=== PATIENT | male | born 1960 | race Caucasian/White ===

== ENCOUNTER → 2021-06-02 | Outpatient (CLI) | payer OTHER ==
--- NOTE | 2021-06-02 11:33 | KCIC ---
EXAM: Lumbar spine MRI without contrast. HISTORY: Pain. Leg weakness. TECHNIQUE: Multiplanar, multisequence magnetic resonance imaging of the lumbar spine was performed wi thout contrast. COMPARISON: CT dated 04/22/2021. FINDINGS: There is mild S-shaped lumbar scoliosis. There is no significant listhesis. There is multil evel endplate remodeling and spurring. There are multiple endplate Schmorl's nodes. There is disc alina iccation at multiple levels. There are few benign bone islands and osseous hemangiomas. There is no s uspicious osseous lesion. There is no acute or subacute fracture. There are postoperative changes at L3-L4, described in detail below. The conus terminates at L1. At L1-L2, there is no stenosis. At L2-L3, there is a disc bulge and endplate remodeling. There is mild bilateral facet arthropathy. T here is prominent dorsal epidural fat. There is mild bilateral foraminal stenosis. There is minimal c entral canal stenosis. At L3-L4, there are partial laminectomy changes. There is postoperative susceptibility effect and sca rring within the interspinous space and overlying subcutaneous fat at this level. There is a large le ft paracentral to foraminal disc protrusion and inferior extrusion superimposed on a disc bulge and l eft lateral predominant endplate remodeling. The extruded disc material extends 9 mm inferior to the disc space. There is moderate right and mild left facet arthropathy. There is mild right and moderate left foraminal stenosis with abutment of the exiting left L3 nerve root. There is severe central can al stenosis with rightward deviation of the traversing nerve roots and complete effacement of the lef t lateral recess. At L4-L5, there is a disc bulge and endplate remodeling. There is severe right and moderate left face t arthropathy. There is prominent dorsal epidural fat. There is mild bilateral foraminal stenosis. Th ere is moderate central canal stenosis. At L5-S1, there is a disc bulge and endplate remodeling. There is severe right and moderate left face t arthropathy. There is mild bilateral foraminal stenosis. IMPRESSION: 1. L3-L4: Large left paracentral to left foraminal disc protrusion with 9 mm inferior extrusion super imposed on a disc bulge, endplate remodeling and facet arthropathy. This results in mild right and mo derate left foraminal stenosis with abutment the exiting left L3 nerve root and severe central canal stenosis with rightward deviation of the traversing nerve roots and complete effacement of the left l ateral recess. There are partial laminectomy changes at this level, with associated suspected scarrin g within the laminectomy decompression space and overlying subcutaneous fat. There is edema within th e posterior paraspinal musculature at this level and inferior to this level which may be due to dener vation. 2. Degenerative change at the remainder of the lumbar levels, described in detail above. This results in mild bilateral foraminal and minimal central canal stenosis at L2-L3, mild bilateral foraminal an d moderate central canal stenosis at L4-L5, and mild bilateral foraminal stenosis at L5-S1. Electronically signed by: Cindy Weems MD (06/02/2021 11:31 AM) [facility]
== END ==
LOC: KCIC MRI 09:21
PROVIDERS: ATTEND Physician Assistant
DX: M51.36 Other intervertebral disc degeneration, lumbar region (principal); M47.817 Spondylosis without myelopathy or radiculopathy, lumbosacral region; M51.27 Other intervertebral disc displacement, lumbosacral region; M41.86 Other forms of scoliosis, lumbar region; M51.46 Schmorl's nodes, lumbar region; M48.07 Spinal stenosis, lumbosacral region
CPT/HCPCS: 72148

== ENCOUNTER → 2021-06-29 | Outpatient (CLI) | payer OTHER ==
[~2021-06-29] MED LIST: ASPI-630 PO; CARV3.1210 PO; INSU100V13 SQ; LIPITOR80 MG PO; LISI10TA16 PO; MELO15TA23 PO; PANT40TA77 PO; PIOG30TA62 PO; TAMS0.4C97 PO; VENL150C PO
[2021-06-29 14:50] LABS: BASO # 0.1 x10^3/uL (0.0-0.2); BASO % 1 % (0-3); EOS # 0.2 x10^3/uL (0.0-0.7); EOS % 3 % (0-3); HEMATOCRIT 38.8 % (39.0-53.0); HEMOGLOBIN 13.4 g/dL (13.0-17.5); LYMPH # 2.5 x10^3/uL (1.0-4.8); LYMPH % 34 % (24-48); MEAN CORPUSCULAR HEMOGLOBIN 27 pg (25-35); MEAN CORPUSCULAR HGB CONC 35 g/dL (31-37); MEAN CORPUSCULAR VOLUME 79 fL (79-100); MONO # 0.4 x10^3/uL (0.0-1.1); MONO % 6 % (0-9); NEUT # 4.1 x10^3/uL (1.8-7.7); NEUT % 56 % (31-73); PLATELET COUNT 305 x10^3/uL (140-400); RED BLOOD COUNT 4.92 x10^6/uL (4.30-5.70); RED CELL DISTRIBUTION WIDTH 14.2 % (11.5-14.5); WHITE BLOOD COUNT 7.3 x10^3/uL (4.0-11.0)
[2021-06-29 15:09] LABS: ALBUMIN 3.5 g/dL (3.4-5.0); ALBUMIN/GLOBULIN RATIO 1.2 (1.0-1.7); CALCIUM 8.4 mg/dL (8.5-10.1); CREATININE 0.9 mg/dL (0.7-1.3); GFR 86.1; POTASSIUM 3.4 mmol/L (3.5-5.1); TOTAL BILIRUBIN 0.3 mg/dL (0.2-1.0); TOTAL PROTEIN 6.5 g/dL (6.4-8.2)
[2021-06-29 15:14] LABS: PROTHROMBIN TIME PATIENT 13.6 SEC (11.7-14.0)
[2021-06-29 23:08] LABS: HEMOGLOBIN A1C 8.6 % (4.8-5.6)
== END ==
LOC: SURGPAT 13:47
PROVIDERS: ATTEND Neurological Surgery
DX: Z01.812 Encounter for preprocedural laboratory examination (principal); Z20.822 Contact with and (suspected) exposure to COVID-19; M51.16 Intervertebral disc disorders with radiculopathy, lumbar region
CPT/HCPCS: 36415; 80053; 83036; 85025; 85610; 85730; 87641; U0003; U0005

== ENCOUNTER 2021-08-01 07:03 | Observation (INO) | payer OTHER ==
[2021-07-28 13:54] VITALS: BP 175/108
[2021-07-28 14:08] LABS: CALCIUM 8.6 mg/dL (8.5-10.1); GFR 76.2; POTASSIUM 3.4 mmol/L (3.5-5.1)
[2021-07-28 14:22] LABS: ALBUMIN 3.6 g/dL (3.4-5.0); ALBUMIN/GLOBULIN RATIO 1.2 (1.0-1.7); TOTAL BILIRUBIN 0.3 mg/dL (0.2-1.0); TOTAL PROTEIN 6.6 g/dL (6.4-8.2)
[~2021-08-01] VITALS: Ht 175.3 cm; Wt 108.6 kg
[2021-08-01] VITALS (11 sets, daily range): BP systolic 109–180; BP diastolic 69–94
[~2021-08-01 07:03] MED LIST changes: +CLINDAMYCIN 900MG PREMIX 50 ML IV PRN; +HYDROmorphone 2 MG/ML VIAL IVP PRN; +IV RINGERS,LACTATED 1000ML 1,000 ML IV SCH; +PROCHLORPERAZINE 10 MG/2 ML VIAL. IVP PRN; +fentaNYL PF VIAL 100 MCG/2 ML VIAL IVP PRN
[2021-08-01] MEDS ORDERED: LIDOCAINE 1%/EPI 1:100,000 20 ML VIAL. ONE (07:08)
[2021-08-01] MEDS ORDERED: BUPIVACAINE MPF 0.5% 30 ML VIAL. ONE (07:08)
[2021-08-01] MEDS ORDERED: THROMBIN TOPICAL 20,000 UNIT SPRAY.SYRN KIT TP ONE (07:09)
[2021-08-01] MEDS ORDERED: MIDAZOLAM HCL/PF 2 MG/2 ML VIAL. ONE (07:32)
[2021-08-01] MEDS ORDERED: fentaNYL PF VIAL 100 MCG/2 ML VIAL ONE ×3 (07:32→13:11)
[2021-08-01] MEDS ORDERED: LIDOCAINE 2% PF 5 ML VIAL. ONE (07:32)
[2021-08-01] MEDS ORDERED: PHENYLEPHRINE 10 MG/ML VIAL. ONE ×2 (07:32→09:46)
[2021-08-01] MEDS ORDERED: PROPOFOL 50 ML IV ONE ×2 (07:32→09:39)
[2021-08-01] MEDS ORDERED: REMIFENTANIL 1 MG VIAL. IV ONE ×2 (07:32→09:53)
[2021-08-01] MEDS ORDERED: SUCCINYLCHOLINE 200 MG/10 ML VIAL. ONE (07:32)
[2021-08-01] MEDS ORDERED: PROPOFOL 10 MG/ML (20ML) VIAL. IV ONE ×2 (07:32→09:12)
[2021-08-01] MEDS ORDERED: ROCURONIUM 50 MG/5 ML VIAL. ONE (07:33)
[2021-08-01] MEDS ORDERED: INSULIN LISPRO 100 UNIT/ML 3ML VIAL for OP,RR ONLY. SQ PRN (08:00)
[2021-08-01] MEDS ORDERED: VANCOMYCIN 1 GM VIAL. ONE (08:08)
[2021-08-01] MEDS ORDERED: ONDANSETRON PF 4 MG/2 ML VIAL. ONE (09:12)
[2021-08-01] MEDS ORDERED: 0.9 % SODIUM CHLORIDE 20 ML VIAL. IJ ONE ×3 (09:53→11:21)
[2021-08-01] MEDS ORDERED: VASOPRESSIN 20 UNIT/ML VIAL. ONE (10:09)
[2021-08-01] MEDS ORDERED: HYDROmorphone 2 MG/ML VIAL ONE (10:33)
[2021-08-01] MEDS ORDERED: SEVOFLURANE > 120 MINUTES. IH ONE (11:00)
[2021-08-01] MEDS ORDERED: NEOSTIGMINE 10 MG/10 ML VIAL. ONE (11:06)
[2021-08-01] MEDS ORDERED: GLYCOPYRROLATE 1 MG/5 ML VIAL. ONE (11:07)
--- NOTE | 2021-08-01 11:25 | PDOC4 ---
BRIEF OPERATIVE NOTE Date: Aug 01, 2021 Pre-Op Diagnosis Herniated disk L3-4, lumbar radiculopathy. Post-Op Diagnosis same Procedure Performed left L3-4 hemilaminotomy with discectomy Surgeon Karla [facility] Damián Donahue Anesthesia Type: General Blood Loss 25mL Specimens Obtained disk and decompression Findings large disc herniation with compressive disk fragment, neuromonitoring at least baseline throughout the procedure Complications none apparent TRU BRADSHAW MD Aug 01, 2021 11:25
[2021-08-01] MEDS ORDERED: diphenhydrAMINE HCL 25 MG CAPSULE PO PRN (11:30)
[2021-08-01] MEDS ORDERED: diphenhydrAMINE 50 MG/ML VIAL IV PRN (11:30)
[2021-08-01] MEDS ORDERED: IV NORMAL SALINE 1000ML BAG 1,000 ML IV SCH (11:30)
[2021-08-01] MEDS ORDERED: fentaNYL PF VIAL 100 MCG/2 ML VIAL IVP PRN ×2 (11:30)
[2021-08-01] MEDS ORDERED: ONDANSETRON PF 4 MG/2 ML VIAL. IVP PRN (11:30)
[2021-08-01] MEDS ORDERED: NALOXONE 0.4 MG/ML VIAL. IV PRN ×2 (11:30)
[2021-08-01] MEDS ORDERED: MAG HYDROX/ALUMINUM HYD/SIMETH 30 ML ORAL.SUSP PO PRN (11:30)
[2021-08-01] MEDS ORDERED: ZOLPIDEM 5 MG TABLET. PO PRN (11:30)
[2021-08-01] MEDS ORDERED: oxyCODONE/APAP 5/325 1 TAB TABLET PO PRN (11:30)
[2021-08-01] MEDS ORDERED: 0.9 % SODIUM CHLORIDE 10 ML DISP.SYRIN. IV PRN (11:30)
[2021-08-01] MEDS ORDERED: ACETAMINOPHEN 325 MG TABLET. PO PRN (11:30)
[2021-08-01] MEDS ORDERED: CALCIUM CARBONATE 500 MG TAB.CHEW PO PRN (11:30)
[2021-08-01] MEDS ORDERED: MAGNESIUM HYDROXIDE 2,400 MG/30 ML ORAL.SUSP. PO PRN (11:30)
[2021-08-01] MEDS ORDERED: PROCHLORPERAZINE 10 MG/2 ML VIAL. ONE (11:47)
[2021-08-01] MEDS: fentaNYL PF VIAL 100 MCG/2 ML VIAL IVP PRN ×4 (11:57→13:33)
[2021-08-01] MEDS ORDERED: MORPHINE SULFATE 2 MG/ML INJ. ONE (12:20)
[2021-08-01] MEDS: MORPHINE SULFATE 2 MG/ML INJ. IVP PRN ×2 (12:22→12:31)
--- NOTE | 2021-08-01 12:51 | OP ---
DATE OF SURGERY: 08/01/2021 SURGEON: Bebeto Acosta MD POWERHOUSE [employer]ORER: Damián Donahue. PREOPERATIVE DIAGNOSIS: Herniated disk at lumbar 3-4 with lumbar radiculopathy. POSTOPERATIVE DIAGNOSIS: Herniated disk at lumbar 3-4 with lumbar radiculopathy. PROCEDURE PERFORMED: Left L3-L4 hemilaminotomy with discectomy. Intraoperative use of neuromonitoring, intraoperative use of microscope. ANESTHESIA: General. COMPLICATIONS: None. INDICATIONS FOR THE PROCEDURE: The patient is a 61-year-old male who was moving large objects while moving for a change of residence when he developed fairly sudden onset back and lower extremity pain. Imaging revealed a large disk herniation at lumbar 3-4. It was felt that surgical decompression with discectomy would be of benefit. Please refer to the patient's chart for additional detail. DESCRIPTION OF PROCEDURE: After informed consent was obtained, the patient was brought into the operating room. He was placed under general anesthesia. Prophylactic antibiotic was administered. The patient was placed in the prone position on the Paco frame. All pressure points were checked and padded appropriately. An appropriate incision location was localized with fluoroscopy prior to the procedure and the lumbar region was then prepped and draped in the usual sterile fashion. Vertical incision centered over the spinous processes of lumbar 3 and lumbar 4 was made with a 10 blade scalpel. Monopolar electrocautery was utilized to dissect the avascular midline to the spinous processes of lumbar 3 and lumbar 4 and leftward across the lamina at this location. Level was verified with fluoroscopy prior to the initiation of decompression and discectomy. A left hemilaminotomy was performed with a pneumatic drill as well as Kerrison rongeurs. Underlying ligament was gently dissected away with a nerve hook and Kerrison rongeurs. A large amount of disk material was immediately encountered, which appeared to obliterate the left lateral recess at this location. This was removed in a largely piecemeal fashion with pituitary rongeurs. Additional disk material was gently teased posterolaterally with a nerve hook and a Holt and this was removed with pituitary rongeurs. A large amount of disk material was encountered and removed. Upon completion of the discectomy, the thecal sac was visualized to be well decompressed and once again in normal position in the left lateral recess. Neuromonitoring potentials remained at least at baseline throughout the procedure. Please note that the microscope was utilized for the hemilaminotomy and discectomy portion of the procedure. Upon completion of the discectomy, decompression was also verified with direct visualization as well as gentle palpation with a nerve hook, a Holt, and a Mccoy ball probe. Attention was then turned to hemostasis. Pristine hemostasis was achieved with FloSeal, cottonoids and some use of bipolar electrocautery. The wound was generously irrigated prior to the final closure. The muscles and fascia were then reapproximated with 0 Vicryl in a simple interrupted fashion. Subcutaneous tissues were reapproximated with 2-0 Vicryl in interrupted inverted fashion. The skin was reapproximated with 4-0 Vicryl in a running subcuticular fashion. Mastisol and Steri-Strips were applied. The wound was dressed with Telfa, 4 x 4s, and Op-Site. At the end of the procedure, all needle and sponge counts were correct x2. The patient was extubated in the operating room and taken to recovery in stable condition. There were no intraprocedural complications apparent. VALDO DR: Mau TID: [id number] MTDJose
[2021-08-01] MEDS: VENLAFAXINE 50 MG TABLET. PO SCH ×2 (15:22→19:45)
[2021-08-01] MEDS: METHOCARBAMOL 750 MG TABLET PO SCH ×2 (15:23→21:49)
[2021-08-01] MEDS: oxyCODONE/APAP 5/325 1 TAB TABLET PO PRN ×2 (15:26→19:46)
[2021-08-01] MEDS: FERROUS SULFATE 325 MG TABLET. PO SCH (17:35)
[2021-08-01] MEDS: CALCIUM CARB/VIT D3 500/200 TABLET. PO SCH (17:35)
[2021-08-01] MEDS: CARVEDILOL 3.125 MG TABLET. PO SCH (17:35)
--- NOTE | 2021-08-01 18:05 | NUR ---
Patient arrived around 1412 in a bed from PACU. IV infusing properly in left hand. Dressing to lower back CDI. Oxygen on at 2L per NC due to sleep apnea. Patient was oriented to the unit and hospital protocols. Will continue to monitor.
[2021-08-01] MEDS: DOCUSATE SODIUM 100 MG CAPSULE. PO SCH (19:45)
[2021-08-01] MEDS ORDERED: ATORVASTATIN CALCIUM 40 MG TABLET. PO SCH (21:00)
[2021-08-01] MEDS: SENNOSIDES/DOCUSATE 8.6/50MG TABLET. PO SCH (21:00)
[2021-08-01] MEDS ORDERED: TAMSULOSIN 0.4 MG CAP.ER.24H. PO SCH (21:00)
[2021-08-01] MEDS: INSULIN GLARGINE SYRINGE. SQ SCH (21:54)
[2021-08-02 03:00] VITALS: BP 144/92
[2021-08-02] MEDS: oxyCODONE/APAP 5/325 1 TAB TABLET PO PRN ×3 (03:11→11:40)
--- NOTE | 2021-08-02 03:25 | NUR ---
Awakened for VS. Percocet 2 tabs given per request.
[2021-08-02 07:00] VITALS: BP 136/91
[2021-08-02] MEDS ORDERED: PANTOPRAZOLE 40 MG TABLET.DR. PO SCH (07:30)
[2021-08-02] MEDS: METHOCARBAMOL 750 MG TABLET PO SCH (07:57)
[2021-08-02] MEDS: CALCIUM CARB/VIT D3 500/200 TABLET. PO SCH (07:58)
[2021-08-02] MEDS: VENLAFAXINE 50 MG TABLET. PO SCH (07:59)
[2021-08-02] MEDS: DOCUSATE SODIUM 100 MG CAPSULE. PO SCH (07:59)
[2021-08-02] MEDS: FERROUS SULFATE 325 MG TABLET. PO SCH (07:59)
[2021-08-02] MEDS: SENNOSIDES/DOCUSATE 8.6/50MG TABLET. PO SCH (07:59)
[2021-08-02 08:00] VITALS: BP 131/88
[2021-08-02] MEDS: CARVEDILOL 3.125 MG TABLET. PO SCH (08:00)
[2021-08-02] MEDS: INSULIN GLARGINE SYRINGE. SQ SCH (08:49)
[2021-08-02] MEDS ORDERED: MULTIVITAMIN with MINERAL TABLET. PO SCH (09:00)
[2021-08-02] MEDS ORDERED: ASPIRIN CHEWABLE 81 MG TABLET. PO SCH (09:00)
[2021-08-02] MEDS ORDERED: PIOGLITAZONE 15 MG TABLET. PO SCH (09:00)
[2021-08-02] MEDS ORDERED: MELOXICAM 7.5 MG TABLET PO SCH (09:00)
[2021-08-02] MEDS ORDERED: LISINOPRIL 10 MG TABLET PO SCH (09:00)
--- NOTE | 2021-08-02 10:03 | PDOC ---
Date of Service: DATE: 08/02/21 TIME: 09:51 Progress Note: S: Reports significant improvement of leg pain. Incisional pain controlled with po regimen. Ambulating without problems. O: AF/VSS, AAOx4, NAD, GROVER 5/5, sensation intact LT, dressing with small region of ss shadowing. A: 61 yo M POD 1 left L3-4 hemilaminotomy with discectomy. P: Recovering well thus far. D/c home today with standard post-op restrictions. Justifications for Admission Other Justification TRU BRADSHAW MD Aug 02, 2021 10:03
[2021-08-02] MEDS ORDERED: SENN-209 PO (10:14)
[2021-08-02] MEDS ORDERED: METH-562 PO (10:14)
[2021-08-02] MEDS ORDERED: OXYC1TAB15 PO (10:14)
--- NOTE | 2021-08-02 12:15 | NUR ---
Patient left with his and daughter around 1200. Dressing to lower back changed without any complications and extra dressings given to the patient/family. Steri strips intact to lower back and no active drainage was noted. IV discontinued. Discharge education completed by this nurse, Dr Acosta, and therapy prior to dismissal. No concerns noted at discharge. Patient left with all his belongings.
--- NOTE | 2021-08-03 16:08 | PATHOLOGY ---
[facility] Accession Number: [id number] . 01 Material submitted: . vertebral column - DISC AND DECOMPRESSION . 01 Clinical history: . HERNIATED DISC RADICULOPATHY LAMINOTOMY WITH DISCECTOMY . 02 Diagnosis: Segments of cartilaginous tissue, disc and decompression: - Degenerative changes. (JPM:kelly; 08/03/2021) S 08/03/2021 1254 Local . 02 Comment: There is no evidence of an acute inflammatory process or malignancy. (JPM:kelly; 08/03/2021) . 02 Electronically signed: . Cem Mullins MD, Pathologist NPI- [id number] . 01 Gross description: . The specimen is received in formalin, labeled "Rodriguez, Jose, disc and decompression" and consists of multiple aleman-figueredo rubbery irregular portions of connective tissue (3.1 x 2.8 x 1.2 cm in aggregate). Sectioning reveals figueredo-aleman dusky unremarkable cut surfaces. Multiple [employer] Crewmember sections are submitted in A1.([facility] [place] [facility]; 08/02/2021) DKA/DKA 08/02/2021 1013 Local . 02 Pathologist provided ICD-10: M54.10 . 02 CPT . 211853 Specimen Comment: A courtesy copy of this report has been sent to [phone], [phone] Specimen Comment: [id number] Specimen Comment: Report sent to / DR NGUYEN Specimen Comment: A duplicate report has been generated due to demographic updates. Performed at: 01 [facility] [address], [place], [place] [id number] MD Kimo Gonzales MD Phone: [phone] Performed at: 02 [facility] [address], [place] [id number] MD Cem Mullins MD Phone: [phone]
== END 2021-08-02 12:15 | disposition home or self-care (01) ==
LOC: SURG 07:03 → 4 NORTH 11:25
PROVIDERS: ADMIT Neurological Surgery; ATTEND Neurological Surgery
DX: M51.26 Other intervertebral disc displacement, lumbar region (principal); Z20.822 Contact with and (suspected) exposure to COVID-19; M54.16 Radiculopathy, lumbar region; Z79.899 Other long term (current) drug therapy; Z98.890 Other specified postprocedural states
CPT/HCPCS: 36415; 63030; 80053; 82962; 86850; 86900; 86901; 87641; 96372; 97116; 97162; 97530; A4364; A4556; A4930; A6254; A6258; A6402; G0378; G0379; J0330; J0780; J1170; J1815; J2270; J2370; J2405; J2704; J2710; J3010; J3490; U0003; U0005; 76000; A4222; A4452; J2250; J3370